=== PATIENT | male | born 1970 | race Caucasian/White ===

== ENCOUNTER 2023-08-21 19:54 | Emergency (ER) | payer OTHER, BC ==
[2023-08-21 20:16] VITALS: RESP 18; BMI 29.2
[2023-08-21] MEDS ORDERED: FENTANYL CITRATE/PF 50 MCG/ML VIAL ONE ×2 (20:16→20:51)
[2023-08-21 20:40] LABS: BASO % 0.4 % (0-2.0); EOS % 2.1 % (0-4.5); HEMATOCRIT 40.9 % (35.4-49); HEMOGLOBIN 14.5 GM/dL (11.7-16.9); LYMPH % 9.9 % (8-40); MCH 29.5 pg (25.7-33.7); MCHC 35.4 g/dl (32.0-35.9); MEAN CELL VOLUME 83.4 fl (80-96); MEAN PLT VOLUME 8.3 fl (7.5-11.1); MONO % 3.8 % (3.8-10.2); NEUT % 83.8 % (42.8-82.8); PLATELET COUNT 177 10^3/uL (134-434); RDW 12.4 % (11.9-15.9); WHITE BLOOD COUNT 8.1 K/mm3 (4.0-10.0)
[2023-08-21 20:45] LABS: INR 1.04 (0.83-1.09); PROTHROMBIN TIME (PATIENT) 12.1 SEC (9.7-13.0)
[2023-08-21 20:48] LABS: ACTIVATED PTT 26.5 SECONDS (25.2-36.5)
[2023-08-21 20:55] LABS: POTASSIUM 3.8 mmol/L (3.5-5.1)
[2023-08-21 20:58] LABS: CALCIUM 9.1 mg/dL (8.5-10.1)
[2023-08-21 20:59] LABS: ALBUMIN 3.9 g/dl (3.4-5.0); BLOOD UREA NITROGEN 20.5 mg/dL (7-18)
[2023-08-21 21:02] LABS: CREATININE 1.2 mg/dL (0.55-1.3)
[2023-08-21 21:04] LABS: TOT PROT 7.2 g/dl (6.4-8.2)
[2023-08-21 21:14] LABS: BILIRUBIN,TOTAL 0.8 mg/dL (0.2-1)
[2023-08-21] MEDS ORDERED: LIDOCAINE 4% PATCH TP ONE ×2 (23:00→23:20)
[2023-08-21 23:49] LABS: PH,URINE 7.5 (5.0-8.0); URINE APPEARANCE CLEAR; URINE BILIRUBIN NEGATIVE (NEGATIVE); URINE COLOR YELLOW; URINE GLUCOSE (UA) NEGATIVE (NEGATIVE); URINE KETONE TRACE (NEGATIVE); URINE LEUK ESTERASE NEGATIVE (NEGATIVE); URINE NITRITE NEGATIVE (NEGATIVE); URINE PROTEIN NEGATIVE (NEGATIVE); URINE UROBILINOGEN 0.2 mg/dL (0.2-1.0)
[2023-08-21] MEDS ORDERED: HYDROmorphone HCl 2 MG/ML VIAL IVPUSH ONE (23:49)
[2023-08-22] MEDS ORDERED: HYDROmorphone HCl 2 MG/ML VIAL ONE
[2023-08-22 00:33] VITALS: BP 140/76; PULSE 70; TEMP 98.3
[2023-08-22] MEDS ORDERED: LIDOCAINE PATCH REMOVAL MC ONE (11:00)
== END 2023-08-22 00:24 | disposition home or self-care (01) ==
LOC: JER 19:54
PROC: 3E033GC Introduction of Other Therapeutic Substance into Peripheral Vein, Percutaneous Approach (ICD-10-PCS; principal; 2023-08-21)
PROC: 3E033GC Introduction of Other Therapeutic Substance into Peripheral Vein, Percutaneous Approach (ICD-10-PCS; 2023-08-21)
PROC: 3E033GC Introduction of Other Therapeutic Substance into Peripheral Vein, Percutaneous Approach (ICD-10-PCS; 2023-08-21)
DX: S32.049A Unspecified fracture of fourth lumbar vertebra, initial encounter for closed fracture (principal); M54.50 Low back pain, unspecified; W00.0XXA Fall on same level due to ice and snow, initial encounter; W10.9XXA Fall (on) (from) unspecified stairs and steps, initial encounter; Y93.01 Activity, walking, marching and hiking
CPT/HCPCS: 36415; 71260-TC; 72131-TC; 74177-TC; 80053; 81003; 85025; 85610; 85730; 86850; 86900; 86901; 93005; 93010; 99285-25; Q9967